=== PATIENT | female | born 1940 | race Caucasian/White ===

== ENCOUNTER 2018-02-08 19:00 | Observation (INO) ==
[2018-02-08] MEDS ORDERED: 0.9 % Sodium Chloride 1,000 ML IVC ONE (19:09)
--- NOTE | 2018-02-08 19:10 | Emergency Department Note ---
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 Reports eating today and drinking fluids throughout the day. Denies any fall, dizziness, or LOC today. Patient states she has had 2 episodes of feeling very lightheaded 1 month ago, which resulted in her "passing out" and falling to the ground. States the second time she fell last month, she hit the back of her head on the ground when she "passed out". Patient states that time she was able to stand up and has not had any difficulty ambulating since. She states she did not seek medical evaluation and treatment after these incidents. Patient denies fever, chills, congestion, and she reports having a nonproductive cough for the past one week. Patient denies numbness, paresthesias in the extremities, denies tremors, or feeling unbalanced. Denies chest pain, dyspnea, or palpitations. Denies abdominal pain, hematochezia, melena, polyuria, hematuria, dysuria; Patient states she has not had an NH in the past, and denies history of CVA or TIA. Last stress test was in 2014 which was negative. Last colonoscopy was in 2008 which was also negative. - Related Data Home Medications Medication Instructions Recorded Confirmed Alendronate Sodium [Fosamax] 35 mg PO QWEEK 02/08/18 02/08/18 Atenolol [Tenormin] 50 mg PO DAILY 02/08/18 02/08/18 Atorvastatin Calcium [Lipitor] 20 mg PO HS 02/08/18 02/08/18 Calcium Carb, Citrate/Vit D3 1 tab PO DAILY 02/08/18 02/08/18 [Calcium + D3 ER Tablet] Lisinopril [Zestril] 10 mg PO DAILY 02/08/18 02/08/18 Loratadine [Allergy Relief] 10 mg PO DAILY 02/08/18 02/08/18 Multivitamin [One Daily Essential] 1 tab PO DAILY 02/08/18 02/08/18 Niacin [Plain Niacin] 250 mg PO DAILY 02/08/18 02/08/18 [place]-3/Dha/Epa/Fish Oil [Fish Oil 1 cap PO DAILY 02/08/18 02/08/18 1,000 mg Softgel] amLODIPine [Norvasc] 5 mg PO DAILY 02/08/18 02/08/18 hydroCHLOROthiazide 25 mg PO DAILY 02/08/18 02/08/18 [Hydrochlorothiazide] Allergies Allergy/AdvReac Type Severity Reaction Status Date / Time caffeine Allergy Hives Verified 02/08/18 19:28 codeine Allergy Hives Verified 02/08/18 19:28 digoxin [From Lanoxin] Allergy Hives Verified 02/08/18 19:28 All systems ED: reviewed and negative except as stated. Review of Systems: As Per HPI Constitutional: Denies: fever Cardiovascular: Reports: other (Presyncope). Denies: chest pain Respiratory: Denies: cough, dyspnea Gastrointestinal: Denies: abdominal pain, nausea, vomiting Genitourinary: Denies: urgency, dysuria, frequency Neurological: Denies: headache Physical Exam - General General appearance: alert, in no apparent distress - Head Head exam: normocephalic - Eye Eye exam: Present: EOMI - ENT ENT exam: normal oropharynx - Neck Neck exam: Present: trachea midline - Chest Chest inspection: Present: symmetric chest wall rise - Respiratory Respiratory exam: Present: normal lung sounds bilaterally. Absent: respiratory distress - Cardiovascular Cardiovascular exam: Present: regular rate, normal rhythm, normal heart sounds - Abdominal Exam Abdominal exam: Present: soft, Non-Tender. Absent: distention, guarding, rebound, rigidity - Extremities Exam Extremities exam: Present: normal capillary refill - Back Exam Back exam: Present: full ROM - Neurological Exam Neurological exam: Present: alert, oriented X3, CN II-XII intact, other (GCS 15 , NIH of 0) - Psychiatric Psychiatric exam: Present: normal affect, normal mood - Skin Skin exam: Present: warm, dry, intact Course Vital Signs Temperature 98.1 F 02/08/18 19:02 Pulse Rate 80 02/08/18 19:02 Respiratory Rate 20 02/08/18 19:02 Blood Pressure 169/71 02/08/18 19:02 O2 Sat by Pulse Oximetry 97 02/08/18 19:02 Temperature 98.1 F 02/08/18 19:02 Pulse Rate 75 02/08/18 22:35 Respiratory Rate 20 02/08/18 22:35 Blood Pressure 166/77 02/08/18 22:35 O2 Sat by Pulse Oximetry 95 02/08/18 22:35 Oxygen Delivery Oxygen Delivery Room Air Medical Decision Making - [facility] Narrative Medical decision making narrative: 78-year-old female presented to the emergency department with concern for presyncopal episode and generalized weakness. 10 EKG. It did not reveal any ischemic ST changes. Also did not reveal any evidence of QT prolongation, we will Suh White syndrome, Brugada syndrome, arrhythmia genic right ventricular cardiomyopathy, or any other arrhythmia. Patient was given a liter of fluids here in the emergency department with concern for possible dehydration. Troponin was negative. Chest x-ray did not reveal any acute car to pulmonary abnormality. Creatinine was normal. Patient had a normal white blood cell count as well as a normal hemoglobin. We did obtain a head CT as patient had a recent fall where she struck the back of her head. CT scan of the head does not show any intracranial hemorrhage. At this time, patient does not have full cardiac evaluation or full workup for having these pre-syncopal events. I spoke with the hospitalist regarding admission of this patient has do not feel is safe for her to go home after an event today. He agreed to accept the patient for admission. Patient agrees as well as she has been seeing primary care provider for this and has not had full evaluation in an inpatient setting. Patient hemodynamically stable not in acute distress at time of admission. Head CT 02/08/18 19:34 IMPRESSION: No acute intracranial hemorrhage or mass effect. D/ / Jose Parks MD / Jose Parks MD Interpreting Provider: Jose Parks MD Chest X-Ray 02/08/18 22:25 IMPRESSION: No acute cardiopulmonary abnormality. D/ / Aly Baird / Aly Baird Interpreting Provider: Aly Baird Vital Signs Temperature 98.1 F 02/08/18 19:02 Pulse Rate 80 02/08/18 19:02 Respiratory Rate 20 02/08/18 19:02 Blood Pressure 169/71 02/08/18 19:02 O2 Sat by Pulse Oximetry 97 02/08/18 19:02 Temperature 98.1 F 02/08/18 19:02 Pulse Rate 75 02/08/18 22:35 Respiratory Rate 20 02/08/18 22:35 Blood Pressure 166/77 02/08/18 22:35 O2 Sat by Pulse Oximetry 95 02/08/18 22:35 Oxygen Delivery Oxygen Delivery Room Air - Lab Data Result diagrams: 02/08/18 19:09 02/08/18 19:09 Lab Results 02/08/18 02/08/18 02/08/18 Range/Units 19:09 19:09 19:09 WBC 7.3 (4.3-11.1) K/mcL RBC 4.45 (3.82-4.97) M/mcL Hgb 13.7 (11.5-15.4) g/dL Hct 39.0 (35.3-44.9) % MCV 87.6 (83.0-100.0) fL MCH 30.8 (28.0-33.3) pg MCHC 35.1 (31.6-35.5) g/dL RDW 12.7 (11.5-14.5) % Plt Count 225 (140-400) K/mcL MPV 10.3 (9.4-12.4) fL Immature Gran % 0.4 (0-4) % Seg Neutrophils % 50.3 % Lymphocytes % 32.1 % Monocytes % 13.4 % Eosinophils % 3.3 % Basophils % 0.5 % Neutrophils # 3.7 (1.6-8.9) K/mcL Lymphocytes # 2.4 (0.6-4.6) K/mcL Monocytes # 1.0 (0.0-1.3) K/mcL Eosinophils # 0.2 (0.0-0.6) K/mcL Basophils # 0.0 (0.0-0.2) K/mcL Sodium 132 L (136-145) mEq/L Potassium 3.8 (3.5-5.1) mEq/L Chloride 95 L (98-107) mEq/L Carbon Dioxide 29 (23-29) mEq/L BUN 23 (8-23) mg/dL Creatinine 1.16 (0.60-1.20) mg/dL Est GFR ( Amer) 55 L (> 60) Est GFR (Non-Af Amer) 45 L (> 60) BUN/Creatinine Ratio 20 (6-26) Glucose 128 H (70-105) mg/dL Calculated Osmolality 279 L (280-300) Calcium 10.6 H (8.6-10.3) mg/dL Troponin I < 0.03 (< 0.04) ng/mL B-Natriuretic Peptide 84 (Less than 100) pg/mL TSH 2.217 (0.340-5.600) mcIU/mL Urine Color (Yellow) Urine Clarity (Clear) Urine pH (5.0-8.0) pH Units Ur Specific [place] (1.010-1.025) Urine Protein (Neg-Trace) mg/dL Urine Glucose (UA) (Normal) mg/dL Urine Ketones (Negative) mg/dL Urine Blood (Negative) Urine Nitrite (Negative) Urine Bilirubin (Negative) Urine Urobilinogen (Normal) mg/dL Ur Leukocyte Esterase (Negative) Urine Microscopic RBC (0-3) per hpf Urine Microscopic WBC (0-3) per hpf Ur Squamous Epith Cells (None-Few) per lpf Urine Bacteria (None-Few) per hpf Hyaline Casts (None-Few) per lpf Ur Culture Indicated? (NO) 02/08/18 Range/Units 22:23 WBC (4.3-11.1) K/mcL RBC (3.82-4.97) M/mcL Hgb (11.5-15.4) g/dL Hct (35.3-44.9) % MCV (83.0-100.0) fL MCH (28.0-33.3) pg MCHC (31.6-35.5) g/dL RDW (11.5-14.5) % Plt Count (140-400) K/mcL MPV (9.4-12.4) fL Immature Gran % (0-4) % Seg Neutrophils % % Lymphocytes % % Monocytes % % Eosinophils % % Basophils % % Neutrophils # (1.6-8.9) K/mcL Lymphocytes # (0.6-4.6) K/mcL Monocytes # (0.0-1.3) K/mcL Eosinophils # (0.0-0.6) K/mcL Basophils # (0.0-0.2) K/mcL Sodium (136-145) mEq/L Potassium (3.5-5.1) mEq/L Chloride (98-107) mEq/L Carbon Dioxide (23-29) mEq/L BUN (8-23) mg/dL Creatinine (0.60-1.20) mg/dL Est GFR ( Amer) (> 60) Est GFR (Non-Af Amer) (> 60) BUN/Creatinine Ratio (6-26) Glucose (70-105) mg/dL Calculated Osmolality (280-300) Calcium (8.6-10.3) mg/dL Troponin I (< 0.04) ng/mL B-Natriuretic Peptide (Less than 100) pg/mL TSH (0.340-5.600) mcIU/mL Urine Color Yellow (Yellow) Urine Clarity Clear (Clear) Urine pH 7.0 (5.0-8.0) pH Units Ur Specific [place] 1.007 L (1.010-1.025) Urine Protein Negative (Neg-Trace) mg/dL Urine Glucose (UA) Normal (Normal) mg/dL Urine Ketones Negative (Negative) mg/dL Urine Blood Trace H (Negative) Urine Nitrite Negative (Negative) Urine Bilirubin Negative (Negative) Urine Urobilinogen Normal (Normal) mg/dL Ur Leukocyte Esterase Trace H (Negative) Urine Microscopic RBC 0-3 (0-3) per hpf Urine Microscopic WBC 0-3 (0-3) per hpf Ur Squamous Epith Cells None Seen (None-Few) per lpf Urine Bacteria None Seen (None-Few) per hpf Hyaline Casts None Seen (None-Few) per lpf Ur Culture Indicated? YES A (NO) - EKG Data EKG #1 EKG attestation: Yes I reviewed and interpreted this EKG. EKG results narrative: 19:20 Ventricular rate 79 bpm, CO 173 ms, QRS duration 82 ms, QT 375 ms, QTC 409 ms, normal axis. Sinus rhythm with a ventricular rate 79 beats for minute. No ischemic ST changes on this EKG. No evidence of Hexrn-Frwttnmvi-[place] syndrome, Brugada syndrome, hypertrophic myopathy, QT prolongation, arrhythmogenic right ventricular cardiomyopathy.
[2018-02-08 19:37] LABS: Basophils % 0.5 %; Eosinophils # 0.2 K/mcL (0.0-0.6); Eosinophils % 3.3 %; Hemoglobin 13.7 g/dL (11.5-15.4); Immature Granulocytes % 0.4 % (0-4); Lymphocytes # 2.4 K/mcL (0.6-4.6); Lymphocytes % 32.1 %; Mean Corpuscular HGB Conc 35.1 g/dL (31.6-35.5); Mean Corpuscular Hemoglobin 30.8 pg (28.0-33.3); Mean Corpuscular Volume 87.6 fL (83.0-100.0); Mean Platelet Volume 10.3 fL (9.4-12.4); Monocytes % 13.4 %; Neutrophils # 3.7 K/mcL (1.6-8.9); Platelet Count 225 K/mcL (140-400); Red Blood Count 4.45 M/mcL (3.82-4.97); Red Cell Distribution Width 12.7 % (11.5-14.5); Segmented Neutrophils % 50.3 %
[2018-02-08 20:00] LABS: BUN/Creatinine Ratio 20 (6-26); Blood Urea Nitrogen 23 mg/dL (8-23); Calcium 10.6 mg/dL (8.6-10.3); Carbon Dioxide 29 mEq/L (23-29); Chloride 95 mEq/L (98-107); Glucose 128 mg/dL (70-105); Osmolality,Calculated 279 (280-300); Potassium 3.8 mEq/L (3.5-5.1); Sodium 132 mEq/L (136-145); eGFR For Non-African Americans 45 (> 60)
[2018-02-08 20:01] LABS: Troponin I < 0.03 ng/mL (< 0.04)
[2018-02-08 20:22] LABS: Thyroid Stimulating Hormone 2.217 mcIU/mL (0.340-5.600)
[2018-02-08 22:32] LABS: Bilirubin,Urine Negative (Negative); Blood,Urine Trace (Negative); Clarity,Urine Clear (Clear); Color,Urine Yellow (Yellow); Glucose,Urine (UA) Normal (Normal); Ketones,Urine Negative (Negative); Leukocyte Esterase,Urine Trace (Negative); Nitrite,Urine Negative (Negative); Protein,Urine Negative (Neg-Trace); Specific Gravity,Urine 1.007 (1.010-1.025); Urobilinogen,Urine Normal (Normal)
--- NOTE | 2018-02-08 22:32 | Emergency Department Note ---
Disposition Clinical Impression: Pre-syncope Disposition: Admitted As Inpatient Condition: Good Weakness HPI - General Chief complaint: ED Weakness Stated complaint: generalized weakness Time Seen by Provider: 02/08/18 19:04 Source: patient, EMS Mode of arrival: ambulatory Limitations: no limitations Nursing Notes Reviewed: Yes Vital Signs Reviewed: Yes - History of Present Illness Pain Scale: 0 - Related Data Home Medications Medication Instructions Recorded Confirmed Alendronate Sodium [Fosamax] 35 mg PO QWEEK 02/08/18 02/08/18 Atenolol [Tenormin] 50 mg PO DAILY 02/08/18 02/08/18 Atorvastatin Calcium [Lipitor] 20 mg PO HS 02/08/18 02/08/18 Calcium Carb, Citrate/Vit D3 1 tab PO DAILY 02/08/18 02/08/18 [Calcium + D3 ER Tablet] Lisinopril [Zestril] 10 mg PO DAILY 02/08/18 02/08/18 Loratadine [Allergy Relief] 10 mg PO DAILY 02/08/18 02/08/18 Multivitamin [One Daily Essential] 1 tab PO DAILY 02/08/18 02/08/18 Niacin [Plain Niacin] 250 mg PO DAILY 02/08/18 02/08/18 [place]-3/Dha/Epa/Fish Oil [Fish Oil 1 cap PO DAILY 02/08/18 02/08/18 1,000 mg Softgel] amLODIPine [Norvasc] 5 mg PO DAILY 02/08/18 02/08/18 Allergies Allergy/AdvReac Type Severity Reaction Status Date / Time caffeine Allergy Hives Verified 02/08/18 19:28 codeine Allergy Hives Verified 02/08/18 19:28 digoxin [From Lanoxin] Allergy Hives Verified 02/08/18 19:28 Past Medical History - Past Medical History Medical history: Reports: atrial fibrillation, GERD, hypertension Psychiatric history: Reports: no psych history - Social History Smoking Status: Never smoker Smokeless Tobacco Status: No Alcohol use: Reports: none Drug use: Reports: none Physical Exam - General Limitations: no limitations General appearance: alert Course Vital Signs Temperature 98.1 F 02/08/18 19:02 Pulse Rate 80 02/08/18 19:02 Respiratory Rate 20 02/08/18 19:02 Blood Pressure 169/71 02/08/18 19:02 O2 Sat by Pulse Oximetry 97 02/08/18 19:02 Temperature 97.7 F 02/10/18 06:55 Pulse Rate 61 02/10/18 06:55 Respiratory Rate 15 02/10/18 06:55 Blood Pressure 124/67 02/10/18 06:55 O2 Sat by Pulse Oximetry 93 02/10/18 06:55 Oxygen Delivery Oxygen Delivery Room Air Weakness - Lab Data Result diagrams: 02/09/18 02:42 02/09/18 02:42 Lab Results 02/08/18 02/08/18 02/08/18 Range/Units 19:09 19:09 19:09 WBC 7.3 (4.3-11.1) K/mcL RBC 4.45 (3.82-4.97) M/mcL Hgb 13.7 (11.5-15.4) g/dL Hct 39.0 (35.3-44.9) % MCV 87.6 (83.0-100.0) fL MCH 30.8 (28.0-33.3) pg MCHC 35.1 (31.6-35.5) g/dL RDW 12.7 (11.5-14.5) % Plt Count 225 (140-400) K/mcL MPV 10.3 (9.4-12.4) fL Immature Gran % 0.4 (0-4) % Seg Neutrophils % 50.3 % Lymphocytes % 32.1 % Monocytes % 13.4 % Eosinophils % 3.3 % Basophils % 0.5 % Neutrophils # 3.7 (1.6-8.9) K/mcL Lymphocytes # 2.4 (0.6-4.6) K/mcL Monocytes # 1.0 (0.0-1.3) K/mcL Eosinophils # 0.2 (0.0-0.6) K/mcL Basophils # 0.0 (0.0-0.2) K/mcL Sodium 132 L (136-145) mEq/L Potassium 3.8 (3.5-5.1) mEq/L Chloride 95 L (98-107) mEq/L Carbon Dioxide 29 (23-29) mEq/L BUN 23 (8-23) mg/dL Creatinine 1.16 (0.60-1.20) mg/dL Est GFR ( Amer) 55 L (> 60) Est GFR (Non-Af Amer) 45 L (> 60) BUN/Creatinine Ratio 20 (6-26) Glucose 128 H (70-105) mg/dL Calculated Osmolality 279 L (280-300) Calcium 10.6 H (8.6-10.3) mg/dL Troponin I < 0.03 (< 0.04) ng/mL B-Natriuretic Peptide 84 (Less than 100) pg/mL TSH 2.217 (0.340-5.600) mcIU/mL Urine Color (Yellow) Urine Clarity (Clear) Urine pH (5.0-8.0) pH Units Ur Specific [place] (1.010-1.025) Urine Protein (Neg-Trace) mg/dL Urine Glucose (UA) (Normal) mg/dL Urine Ketones (Negative) mg/dL Urine Blood (Negative) Urine Nitrite (Negative) Urine Bilirubin (Negative) Urine Urobilinogen (Normal) mg/dL Ur Leukocyte Esterase (Negative) Urine Microscopic RBC (0-3) per hpf Urine Microscopic WBC (0-3) per hpf Ur Squamous Epith Cells (None-Few) per lpf Urine Bacteria (None-Few) per hpf Hyaline Casts (None-Few) per lpf Ur Culture Indicated? (NO) 02/08/18 Range/Units 22:23 WBC (4.3-11.1) K/mcL RBC (3.82-4.97) M/mcL Hgb (11.5-15.4) g/dL Hct (35.3-44.9) % MCV (83.0-100.0) fL MCH (28.0-33.3) pg MCHC (31.6-35.5) g/dL RDW (11.5-14.5) % Plt Count (140-400) K/mcL MPV (9.4-12.4) fL Immature Gran % (0-4) % Seg Neutrophils % % Lymphocytes % % Monocytes % % Eosinophils % % Basophils % % Neutrophils # (1.6-8.9) K/mcL Lymphocytes # (0.6-4.6) K/mcL Monocytes # (0.0-1.3) K/mcL Eosinophils # (0.0-0.6) K/mcL Basophils # (0.0-0.2) K/mcL Sodium (136-145) mEq/L Potassium (3.5-5.1) mEq/L Chloride (98-107) mEq/L Carbon Dioxide (23-29) mEq/L BUN (8-23) mg/dL Creatinine (0.60-1.20) mg/dL Est GFR ( Amer) (> 60) Est GFR (Non-Af Amer) (> 60) BUN/Creatinine Ratio (6-26) Glucose (70-105) mg/dL Calculated Osmolality (280-300) Calcium (8.6-10.3) mg/dL Troponin I (< 0.04) ng/mL B-Natriuretic Peptide (Less than 100) pg/mL TSH (0.340-5.600) mcIU/mL Urine Color Yellow (Yellow) Urine Clarity Clear (Clear) Urine pH 7.0 (5.0-8.0) pH Units Ur Specific [place] 1.007 L (1.010-1.025) Urine Protein Negative (Neg-Trace) mg/dL Urine Glucose (UA) Normal (Normal) mg/dL Urine Ketones Negative (Negative) mg/dL Urine Blood Trace H (Negative) Urine Nitrite Negative (Negative) Urine Bilirubin Negative (Negative) Urine Urobilinogen Normal (Normal) mg/dL Ur Leukocyte Esterase Trace H (Negative) Urine Microscopic RBC 0-3 (0-3) per hpf Urine Microscopic WBC 0-3 (0-3) per hpf Ur Squamous Epith Cells None Seen (None-Few) per lpf Urine Bacteria None Seen (None-Few) per hpf Hyaline Casts None Seen (None-Few) per lpf Ur Culture Indicated? YES A (NO) Attestation Statement - Attestation Attestation: I, Yasmany rOellana, examined this patient and my medical decision-making was reviewed with the DATA OPERATIONS LEADER/PA/Advanced Practice Nurse/Resident Physician. I agree with the documented findings, disposition and treatment plan as described except to the extent set forth below. 78-year-old female presents emergency Department with concerns of near syncope. Patient states she was sitting [place] a show [place] the [place] when she suddenly became lightheaded and felt like she was going to syncopized. Patient has had similar symptoms intermittently over the past few months and last syncopized one month ago. She did not seek medical attention after that time. Patient states she felt like she was going to syncopized today. She denied chest pain or shortness of breath or nausea, vomiting, diarrhea. No fever. Patient states she drank plenty of water throughout the day today. Initial EKG did not show evidence of acute ischemia or STEMI. Laboratory evaluation is largely within normal limits. No focal neurologic deficits on exam. CT did not show evidence of acute pathology. Patient will be admitted for further care and evaluation of near syncope
[2018-02-08 22:35] LABS: Bacteria,Urine None Seen per hpf (None-Few); Hyaline Casts,Urine None Seen per lpf (None-Few); RBC,Urine 0-3 per hpf (0-3); Squamous Epithelial Cell,Urine None Seen per lpf (None-Few); WBC,Urine 0-3 per hpf (0-3)
[2018-02-09] MEDS ORDERED: Naloxone 0.4 MG/ML INJ IVP PRN (02:28)
[2018-02-09 03:19] LABS: Hemoglobin 13.1 g/dL (11.5-15.4); Mean Corpuscular HGB Conc 35.4 g/dL (31.6-35.5); Mean Corpuscular Hemoglobin 30.9 pg (28.0-33.3); Mean Corpuscular Volume 87.3 fL (83.0-100.0); Mean Platelet Volume 10.5 fL (9.4-12.4); Platelet Count 217 K/mcL (140-400); Red Blood Count 4.24 M/mcL (3.82-4.97); Red Cell Distribution Width 12.6 % (11.5-14.5)
[2018-02-09 03:38] LABS: BUN/Creatinine Ratio 25 (6-26); Blood Urea Nitrogen 23 mg/dL (8-23); Calcium 9.6 mg/dL (8.6-10.3); Carbon Dioxide 24 mEq/L (23-29); Chloride 103 mEq/L (98-107); Glucose 111 mg/dL (70-105); Osmolality,Calculated 286 (280-300); Potassium 3.4 mEq/L (3.5-5.1); Sodium 136 mEq/L (136-145); eGFR For Non-African Americans 60 (> 60)
--- NOTE | 2018-02-09 07:59 | Internal Med History&Physical ---
Date of Encounter: 02/09/18 Time of Encounter: 01:20 Internal Medicine - H&P: HPI Chief complaint: weakness Admitted From: Home History of present illness: Ms. Tenorio is a 78 year old female Patient had [place] today states that she was not feeling well. She is sitting up on the bleachers and started to feel "weird"and that she might fall so she came down from the bleachers and sat in a chair. The feeling increased, a physician family friend [place], and recommended that she go to the ER for evaluation. This feeling of weakness has been worse, possibly related to the excess heat at the fair. She indicates that she has had evaluations for this in the past but everything always comes back normal. She denies recent falls, has seen cardiology 2-3 years ago with normal workup. She has noted some sinus pressure lately but currently that is better. Upon my assessment patient denies chest pain, nausea, vomiting, abdominal pain, diarrhea, constipation, neck pain and vision changes. She has no current complaints, resting comfortably in bed. Past Med Surg Social Fam HX - Past Medical History Medical history: atrial fibrillation, GERD, hyperlipidemia, hypertension Additional medical history: high triglycerides Psychiatric history: no psych history - Social History Smoking Status: Never smoker Smokeless Tobacco Status: No Alcohol use: none Drug use: none - Family History Mother History Unknown: Yes Name: Briana Walters Age at : 97 Hx Family Genitourinary Disorders: Yes Internal Medicine - H&P: Meds Alendronate Sodium [Fosamax] 35 mg PO QWEEK 02/08/18 [History] Atenolol [Tenormin] 50 mg PO DAILY 02/08/18 [History] Atorvastatin Calcium [Lipitor] 20 mg PO HS 02/08/18 [History] Calcium Carb, Citrate/Vit D3 [Calcium + D3 ER Tablet] 1 tab PO DAILY 02/08/18 [ History] Lisinopril [Zestril] 10 mg PO DAILY 02/08/18 [History] Loratadine [Allergy Relief] 10 mg PO DAILY 02/08/18 [History] Multivitamin [One Daily Essential] 1 tab PO DAILY 02/08/18 [History] Niacin [Plain Niacin] 250 mg PO DAILY 02/08/18 [History] [place]-3/Dha/Epa/Fish Oil [Fish Oil 1,000 mg Softgel] 1 cap PO DAILY 02/08/18 [ History] amLODIPine [Norvasc] 5 mg PO DAILY 02/08/18 [History] hydroCHLOROthiazide [Hydrochlorothiazide] 25 mg PO DAILY 02/08/18 [History] 3 Allergy/AdvReac Type Severity Reaction Status Date / Time caffeine Allergy Hives Verified 02/08/18 19:28 codeine Allergy Hives Verified 02/08/18 19:28 digoxin [From Lanoxin] Allergy Hives Verified 02/08/18 19:28 All Systems PM: A 10-system review of systems was performed and is negative for pertinent findings except as documented above in the HPI. - Constitutional Vitals: Temp Pulse Resp BP Pulse Ox 97.6 F 68 15 139/71 94 02/09/18 06:29 02/09/18 06:29 02/09/18 06:29 02/09/18 06:29 02/09/18 06:29 General appearance: Present: cooperative, A&O X 3, pleasant, no acute distress, answers questions appropriately - Head Head exam: Present: normal inspection - Eye Eye exam: Present: EOMI, normal appearance - Neck Neck exam general surgery: Present: full ROM. Absent: tenderness - Respiratory Respiratory exam: Present: CTAB. Absent: chest wall tenderness, decreased breath sounds, respiratory distress, wheezes - Cardiovascular Cardiovascular exam: Present: RRR. Absent: diastolic murmur, systolic murmur - GI/Abdominal GI/Abdominal exam: Present: normal bowel sounds, soft. Absent: tenderness - Extremities Exam Extremities exam: Present: full ROM, warm, radial pulses palpable and symmetrical. Absent: calf tenderness, pedal edema, tenderness - Neurological Exam Neurological exam: Present: no focal deficits, strengths equal and symetr throughout. Absent: motor sensory deficit, facial droop, speech deficit - Skin Skin exam: Present: dry, normal color, warm Internal Med - H&P Results - Labs CBC & Chem 7: 02/09/18 02:42 02/09/18 02:42 Labs: Short CBC 02/09/18 Range/Units 02:42 WBC 8.8 (4.3-11.1) K/mcL Hgb 13.1 (11.5-15.4) g/dL Hct 37.0 (35.3-44.9) % Plt Count 217 (140-400) K/mcL [facility] 02/09/18 02:42 Sodium 136 Potassium 3.4 L Chloride 103 Carbon Dioxide 24 BUN 23 Creatinine 0.91 Glucose 111 H Calcium 9.6 - Assessment and plan (1) Pre-syncope Current Visit: Yes Status: Acute Assessment and plan: [place] the [place], has a history of these sort of symptoms including weakness and near syncope. No recent cardiology work up. Head CT negative. Orthostatic vitals in the morning Consider cardiology consult for outpatient monitor placement IV fluids given, continue to monitor. Fall precautions. (2) Hypertension Current Visit: Yes Status: Acute Assessment and plan: Patient's blood pressure initially elevated, improved on recheck. Patient takes 4 different blood pressure medications. Possibly needs readjustments, as this combination could be causing her symtoms. Review blood pressure medications at discharge. Continue to monitor. Qualifiers: Qualified Code(s): I10 - Essential (primary) hypertension (3) DVT prophylaxis Current Visit: Yes Status: Acute Assessment and plan: SCDs - Time Spent With Patient Total time spent is greater than 50% in coordination of care (as documented) at patient's floor/unit and/or counseling patient: Greater than 35 minutes
--- NOTE | 2018-02-09 10:29 | Cardiology Consult Note ---
Date of Encounter: 02/09/18 Time of Encounter: 10:27 Assessment and Plan (1) Pre-syncope Current Visit: Yes Status: Acute 78-year-old female who reports a few episodes of near syncope in the setting of periods of decreased hydration, prolonged standing, and hot environments. Presentation is suggestive of orthostatic hypotension. We discussed the importance of risk factor modification, including aggressive hydration, especially in hot environments. She was encouraged to avoid prolonged periods of standing. Compression stockings encouraged. Telemetry demonstrates sinus rhythm, ECG to same. Recommend TTE. If no significant findings on TTE, then no further inpatient cardiac testing appears to be necessary at this time. Discussion w patient/family: The assessment and plan as outlined above was discussed with the patient and/or family members who expressed understanding and agreement. All questions were answered. Thank you for involving us in the care of your patient. Please call with any questions. History of Present Illness Consult date: 02/09/18 Requesting physician: Addison Pena Consult reason: Near syncope Chief complaint: Near syncope History of present illness: Ms. Tenorio is a 78 year old female with no known cardiac history presents with near-syncopal episode. Patient states she underwent cardiac testing in 2016 at [facility] - states stress test was negative, heart function normal. Describes several near-syncopal episodes over the past few months. States symptoms have always occurred after periods of decreased hydration. States last [place], very hot. Describes feeling lightheaded and near syncopal during that time. She [place] the [place] yesterday. States she had a long day, on her feet quite a bit. Describes a progressive sensation of lightheadedness, resulting in near syncope. Patient and family know Dr. Romero, who recommended she come to the ER for evaluation. Denies associated chest pain. Relatively active at home, no exertional symptoms reported. Telemetry demonstrates sinus rhythm. Of note, urine culture is pending. Sodium 132, now 136. Troponin negative. CBC normal. CT head unremarkable. Past Med Surg Social Fam HX - Past Medical History Medical history: atrial fibrillation, GERD, hyperlipidemia, hypertension Additional medical history: high triglycerides Psychiatric history: no psych history - Social History Smoking Status: Never smoker Smokeless Tobacco Status: No Alcohol use: none Drug use: none - Family History Mother History Unknown: Yes Name: Briana Walters Age at : 97 Hx Family Genitourinary Disorders: Yes Medications and Allergies Alendronate Sodium [Fosamax] 35 mg PO QWEEK 02/08/18 [History] Atenolol [Tenormin] 50 mg PO DAILY 02/08/18 [History] Atorvastatin Calcium [Lipitor] 20 mg PO HS 02/08/18 [History] Calcium Carb, Citrate/Vit D3 [Calcium + D3 ER Tablet] 1 tab PO DAILY 02/08/18 [ History] Lisinopril [Zestril] 10 mg PO DAILY 02/08/18 [History] Loratadine [Allergy Relief] 10 mg PO DAILY 02/08/18 [History] Multivitamin [One Daily Essential] 1 tab PO DAILY 02/08/18 [History] Niacin [Plain Niacin] 250 mg PO DAILY 02/08/18 [History] [place]-3/Dha/Epa/Fish Oil [Fish Oil 1,000 mg Softgel] 1 cap PO DAILY 02/08/18 [ History] amLODIPine [Norvasc] 5 mg PO DAILY 02/08/18 [History] hydroCHLOROthiazide [Hydrochlorothiazide] 25 mg PO DAILY 02/08/18 [History] 3 Allergy/AdvReac Type Severity Reaction Status Date / Time caffeine Allergy Hives Verified 02/08/18 19:28 codeine Allergy Hives Verified 02/08/18 19:28 digoxin [From Lanoxin] Allergy Hives Verified 02/08/18 19:28 All Systems Review: The remainder of the systems were reviewed and are negative - Cardiovascular Cardiovascular: as per HPI Physical Examination Vital Signs, Last 4 Hours Temp Pulse Resp BP Pulse Ox 02/09/18 06:29 97.6 F 68 15 139/71 94 General: Conversant, No Apparent Distress HEENT: Atraumatic, Normocephaly, Mucus Membranes Moist Neck: No JVD, Normal carotid pulses Cardiac: Reg Rate and Rhythm, Normal S1 and S2, No Murmur Lungs: Normal Breath Sounds, No Wheeze, Rales, Rhonchi Neuro: Alert and responsive, No focal deficits noted Abdomen: Soft, Non-Tender Skin: No rashes noted on visualized skin Musculoskeletal: No Chest Wall Tenderness Extremities: No Clubbing, No Cyanosis, No Edema Results 02/09/18 02:42 02/09/18 02:42 Lab Results 02/09/18 02/09/18 02:42 02:42 WBC 8.8 Hgb 13.1 Hct 37.0 Plt Count 217 Sodium 136 Potassium 3.4 L Chloride 103 Carbon Dioxide 24 BUN 23 Creatinine 0.91 Glucose 111 H Calcium 9.6 - EKG Interpretation EKG results cardiology: personally reviewed Consult Discharge Plan - Plan Referrals: Master Lynch MD [Primary Care Provider] -
[2018-02-09] MEDS: Loratadine 10 MG TABLET PO SCH (16:09)
[2018-02-09] MEDS: amLODIPine 5 MG TABLET PO SCH (16:09)
--- NOTE | 2018-02-09 17:56 | Internal Med Progress Note ---
<DentonLeighann Reymundo - Last Filed: 02/09/18 18:15> Hospitalist Progress Note - Encounter Date of Encounter: 02/09/18 Time of Encounter: 10:30 - Subjective Interval History: Miss Tenorio states that she is feeling today. She does admit to a headache that is mild, constant, dull frontal pain that worsens when she lies flat. She states that it is similar to the headaches she has gotten in the past, she states that it is usually caused by sinus pressure related to allergies. She states that she only becomes dizzy when standing and it is worse in the morning after taking her blood pressure medications, she states that the dizziness is the least at night. She denies any dizziness or lightheadedness at this time. She denies any vision changes, nausea, vomiting, fever, chills, chest pain, shortness of breath, abdominal pain, parathesias, or weakness at this time. - Exam Vitals: Temp Pulse Resp BP Pulse Ox 97.6 F 70 15 151/74 94 02/09/18 15:45 02/09/18 15:45 02/09/18 15:45 02/09/18 15:45 02/09/18 15:45 Exam: General: Resting comfortably, in no acute distress, AAOx3, pleasant HEENT: Normocephalic, atraumatic, EOMI, PERRL, mucus membranes moist. Neck soft , supple, trachea midline, no cervical lymphadenopathy. Cardio: RRR, no murmurs, rubs or gallops. Normal S1, S2. No carotid bruits. Pulmonary: No wheezes, rales or rhonchi. No accessory respiratory muscle use. Abdomen: Soft, non tender, non distended, normal bowel sounds, no guarding, rebound or rigidity. No CVA or suprapubic tenderness. Extremities: Radial and dorsal pedis pulses 2+ and symmetrical, normal capillary refill, no clubbing. No peripheral edema or calf tenderness. Neuro: CN 2-12 intact, no focal deficits, motor and sensation both intact. Decreased ROM of turning her neck to the left side or looking down. Psych: Normal mood and affect, answers questions appropriately - Assessment and Plan (1) Orthostatic hypotension Current Visit: Yes Status: Acute Assessment and Plan: History of increasing frequency of pre-syncopal episodes Often occurs after blood pressure medications in morning, during prolonged standing, decreased hydration Most likely secondary to suspected orthostatic hypotension vs antihypertensive medications Head CT negative Telemetry showed normal sinus rhythm EKG showed no evidence of arrhythmia or ischemic ST changes Orthostatic vitals normal, were tested after admission and IV fluids given ECHO showed LVEF 65%, mild left ventricular diastolic dysfunction, mild aortic regurgitation, mild pulmonary hypertension. Cardio recs: aggressive hydration, compression stockings. Discontinued hydrochlorothiazide Neuro consult pending (2) Hypertension Current Visit: Yes Status: Acute Assessment and Plan: Uncontrolled, currently at 151/74 hydrochlorothiazide discontinued as presyncopal episodes most likely secondary to dehydration and orthostatic hypotension Continue amlodipine, atenolol and lisinopril Will continue to adjust medications for better blood pressure control and prevent future presyncopal events continue to monitor (3) Hypokalemia Current Visit: Yes Status: Acute Assessment and Plan: was at 3.4 today replaced with 40 mg potassium chloride DVT Prophylaxis: SCD's - Time Spent with Patient Total time spent is greater than 50% in coordination of care (as documented) at patient's floor/unit and/or counseling patient: Internal Medicine: Result - Labs CBC & Chem 7: 02/09/18 02:42 02/09/18 02:42 Labs: Short CBC 02/09/18 Range/Units 02:42 WBC 8.8 (4.3-11.1) K/mcL Hgb 13.1 (11.5-15.4) g/dL Hct 37.0 (35.3-44.9) % Plt Count 217 (140-400) K/mcL BMP 02/09/18 02:42 Sodium 136 Potassium 3.4 L Chloride 103 Carbon Dioxide 24 BUN 23 Creatinine 0.91 Glucose 111 H Calcium 9.6 - Impressions Impressions Echocardiogram 02/09/18 10:36 Impressions: LVEF 65%. Normal LV chamber size, wall thickness and function. Mild left ventricular diastolic dysfunction. Normal right ventricular structure and function. Mild aortic regurgitation. Mild pulmonary hypertension. Estimated RVSP is 40 mmHg. Left Ventricular Wall Motion: Rest Echo Findings All wall segments showed normal motion. Findings: Study Quality * Technically adequate exam. ECG Findings * Normal sinus rhythm. Left Ventricle * LVEF 65%. * Normal LV chamber size, wall thickness and function. * Mild left ventricular diastolic dysfunction. Right Ventricle * Normal right ventricular structure and function. Left Atrium * Mildly dilated left atrium. Right Atrium * Normal right atrial size. Aortic Valve * Trileaflet aortic valve. * Mild aortic regurgitation. * No aortic stenosis. Mitral Valve * Normal mitral valve structure and function. * No mitral stenosis. * Trace mitral regurgitation. Tricuspid Valve * Normal tricuspid valve structure and function. * Trace tricuspid regurgitation. * Mild pulmonary hypertension. * Estimated RVSP is 40 mmHg. * Estimated RA pressure is 5 mmHg. Pulmonic Valve * Pulmonic valve is not well visualized. * No pulmonic regurgitation. Aorta * Normally sized aortic root. Pericardium * The pericardium appears normal. IVC * Normal IVC dimensions and inspiratory collapse. Pulmonary Artery * Normal visualized portions of the main pulmonary artery. Consult Discharge Plan - Plan Referrals: Master Lynch MD [Primary Care Provider] - <Addison Pena - Last Filed: 02/09/18 19:33> Hospitalist Progress Note - Encounter Date of Encounter: 02/09/18 - Exam Vitals: Temp Pulse Resp BP Pulse Ox 97.6 F 70 15 151/74 94 02/09/18 15:45 02/09/18 15:45 02/09/18 15:45 02/09/18 15:45 02/09/18 15:45 - Time Spent with Patient Total time spent is greater than 50% in coordination of care (as documented) at patient's floor/unit and/or counseling patient: Internal Medicine: Result - Labs CBC & Chem 7: 02/09/18 02:42 02/09/18 02:42 Labs: Short CBC 02/09/18 Range/Units 02:42 WBC 8.8 (4.3-11.1) K/mcL Hgb 13.1 (11.5-15.4) g/dL Hct 37.0 (35.3-44.9) % Plt Count 217 (140-400) K/mcL BMP 02/09/18 02:42 Sodium 136 Potassium 3.4 L Chloride 103 Carbon Dioxide 24 BUN 23 Creatinine 0.91 Glucose 111 H Calcium 9.6 - Impressions Impressions Echocardiogram 02/09/18 10:36 Impressions: LVEF 65%. Normal LV chamber size, wall thickness and function. Mild left ventricular diastolic dysfunction. Normal right ventricular structure and function. Mild aortic regurgitation. Mild pulmonary hypertension. Estimated RVSP is 40 mmHg. Left Ventricular Wall Motion: Rest Echo Findings All wall segments showed normal motion. Findings: Study Quality * Technically adequate exam. ECG Findings * Normal sinus rhythm. Left Ventricle * LVEF 65%. * Normal LV chamber size, wall thickness and function. * Mild left ventricular diastolic dysfunction. Right Ventricle * Normal right ventricular structure and function. Left Atrium * Mildly dilated left atrium. Right Atrium * Normal right atrial size. Aortic Valve * Trileaflet aortic valve. * Mild aortic regurgitation. * No aortic stenosis. Mitral Valve * Normal mitral valve structure and function. * No mitral stenosis. * Trace mitral regurgitation. Tricuspid Valve * Normal tricuspid valve structure and function. * Trace tricuspid regurgitation. * Mild pulmonary hypertension. * Estimated RVSP is 40 mmHg. * Estimated RA pressure is 5 mmHg. Pulmonic Valve * Pulmonic valve is not well visualized. * No pulmonic regurgitation. Aorta * Normally sized aortic root. Pericardium * The pericardium appears normal. IVC * Normal IVC dimensions and inspiratory collapse. Pulmonary Artery * Normal visualized portions of the main pulmonary artery. - Attending Attestation I examined this patient and my medical decision-making was reviewed with the Resident Physician on 02/09/18. I agree with the documented findings, disposition and treatment plan as described except to the extent set forth below. Ms Tenorio was admitted earlier today with near syncopal episode. Appreciate cardiology input. Neuro to eval. Agree with above assessment and plan. <Leighann Chawla - Last Filed: 02/09/18 18:15> (2) Hypertension Qualifiers: Qualified Code(s): I10 - Essential (primary) hypertension
[2018-02-10 06:56] VITALS: BP 124/67
[2018-02-10] MEDS: amLODIPine 5 MG TABLET PO SCH (09:49)
[2018-02-10] MEDS: Loratadine 10 MG TABLET PO SCH (09:50)
--- NOTE | 2018-02-10 10:06 | Neurology - Consult Note ---
Date of Encounter: 02/10/18 Time of Encounter: 10:05 Assessment and Plan (1) Orthostatic hypotension Current Visit: Yes Status: Acute This is a 78 year old woman with PMH significant for HTN, CKD, GERD who developed two similar episodes of near syncope/syncope episodes, occurring in standing position after standing up for a while. She lost consciousness momentarily and regained her consciousness quickly both instances. Also she has been experiencing intermittent not feeling well, weakness in the morning. She has HTN and been on 4 antihypertensives and i agree that this could be a case of orthostatic hypotension in light of not hydrating adequately. She has non focal neurological examination. No indications of seizure activity. No indications of cranial nerve involvement. i would recommend no further testing or imaging studies except carotid artery duplex study to rule out ICA stenosis. Other than that agree with current medical treatment plan, including regulate BP , adequate hydration, stocking legs. Thank you very much for the consultation History of Present Illness Chief complaint: generalized weakness and near syncope HPI: Ms. Tenorio is a 78 year old female with PMH significant for HTN, GERD, hyperlipidemia, CKD, who developed an episode of not feeling well, and then passed out momentarily. Patient has had a similar episode in the past. She was initially in sitting position and after standing and walking a while she suddenly felt dizzy and collapsed on the floor. No motor activity, no tongue biting and no urinary incontinence. She recognizes that both episodes occurred when the days prior to the incidents she was not dydrated well. She has been experiencing also these episodes of not feeling well, generalized weakness usually happens in the morning and after a nap she would then feel better in the afternoon. No focal neurological deficits noted. Past Med Surg Social Fam HX - Past Medical History Medical history: atrial fibrillation, GERD, hyperlipidemia, hypertension Additional medical history: high triglycerides Psychiatric history: no psych history - Social History Smoking Status: Never smoker Smokeless Tobacco Status: No Alcohol use: none Drug use: none - Family History Mother History Unknown: Yes Name: Briana Walters Age at : 97 Hx Family Genitourinary Disorders: Yes Medications and Allergies Alendronate Sodium [Fosamax] 35 mg PO QWEEK 02/08/18 [History] Atenolol [Tenormin] 50 mg PO DAILY 02/08/18 [History] Atorvastatin Calcium [Lipitor] 20 mg PO HS 02/08/18 [History] Calcium Carb, Citrate/Vit D3 [Calcium + D3 ER Tablet] 1 tab PO DAILY 02/08/18 [ History] Lisinopril [Zestril] 10 mg PO DAILY 02/08/18 [History] Loratadine [Allergy Relief] 10 mg PO DAILY 02/08/18 [History] Multivitamin [One Daily Essential] 1 tab PO DAILY 02/08/18 [History] Niacin [Plain Niacin] 250 mg PO DAILY 02/08/18 [History] [place]-3/Dha/Epa/Fish Oil [Fish Oil 1,000 mg Softgel] 1 cap PO DAILY 02/08/18 [ History] amLODIPine [Norvasc] 5 mg PO DAILY 02/08/18 [History] hydroCHLOROthiazide [Hydrochlorothiazide] 25 mg PO DAILY 02/08/18 [History] 3 Allergy/AdvReac Type Severity Reaction Status Date / Time caffeine Allergy Hives Verified 02/08/18 19:28 codeine Allergy Hives Verified 02/08/18 19:28 digoxin [From Lanoxin] Allergy Hives Verified 02/08/18 19:28 All Systems: The remainder of the systems were reviewed and are negative Physical Examination - Vital Signs Vital Signs: Initial Vital Signs Temp Pulse Resp BP Pulse Ox 98.1 F 80 20 169/71 97 02/08/18 19:02 02/08/18 19:02 02/08/18 19:02 02/08/18 19:02 02/08/18 19:02 - Constitutional General appearance: comfortable - Neurologic Sensorimotor examination: intact Detailed motor examination: full strength in all major muscle groups Motor examination - right side: 5/5: deltoids, biceps, triceps, wrist flexion, wrist extension, railroad purchasing agent, hip flexors, tibialis Anterior, quadriceps, toe extension (EHL), plantarflexion Motor examination - left side: 5/5: deltoids, biceps, triceps, wrist flexion, wrist extension, hip flexors, railroad purchasing agent, quadriceps, tibialis Anterior, toe extension (EHL), plantarflexion Reflexes: Biceps: 2+, Triceps: 2+, Brachioradialis: 2+, Patella: 2+, Achilles: 2 + Mental Status Examination: awake, alert, oriented to person, oriented to place, oriented to time, follows commands appropriately, answers questions appropriately, no agnosia, no aphasia, no aproxia Cranial nerve examination: PERRL, EOMI, visual wagoner intact, corneal reflexes brisk symmetrically, sensory to face intact, mastication intact, no facial asymmetry is present, no dysarthria, hearing is intact symmetrically, soft palate elevates bilaterally upon phonation, gag reflex intact, flexes SCM and trapezius muscles symmetrically with full power, tongue protrudes midline, no atrophy or facial fasiculations present Cerebellar examination: no dysmetria, performs finger to nose and heel to sahni symmetrically without ataxia, no gait ataxia, no truncal ataxia, no difficulty with rapid alternating movements Results - Laboratory Findings CBC and BMP: 02/09/18 02:42 02/09/18 02:42 Abnormal lab findings: Abnormal lab results Potassium 3.4 mEq/L (3.5-5.1) L 02/09/18 02:42 Glucose 111 mg/dL (70-105) H 02/09/18 02:42 Ur Specific [place] 1.007 (1.010-1.025) L 02/08/18 22:23 Urine Blood Trace (Negative) H 02/08/18 22:23 Ur Leukocyte Esterase Trace (Negative) H 02/08/18 22:23 Ur Culture Indicated? YES (NO) A 02/08/18 22:23 Consult Discharge Plan - Plan Referrals: Master Lynch MD [Primary Care Provider] -
--- NOTE | 2018-02-10 10:36 | Cardiology Progress Note ---
Date of Encounter: 02/10/18 Time of Encounter: 10:34 Assessment and Plan (1) Pre-syncope Current Visit: Yes Status: Acute 78-year-old female who reports a few episodes of near syncope in the setting of periods of decreased hydration, prolonged standing, and hot environments. Presentation is suggestive of orthostatic hypotension. We discussed the importance of risk factor modification, including aggressive hydration, especially in hot environments. She was encouraged to avoid prolonged periods of standing. Compression stockings encouraged. No significant findings on TTE. Telemetry demonstrates sinus rhythm. No further inpatient cardiology testing appears to be necessary to this time. Cardiology will sign off. Please call with any questions or concerns. Discussion w patient/family: The assessment and plan as outlined above was discussed with the patient and/or family members who expressed understanding and agreement. All questions were answered. Thank you for involving us in the care of your patient. Please call with any questions. Subjective Principal diagnosis: Near syncope Interval history: Overall, patient reports she feels better. No further episodes of lightheadedness or near syncope since hospitalization. Telemetry demonstrates sinus rhythm. TTE demonstrates normal LV function, no significant valve disease. Objective Vital Signs, Last 4 Hours Temp Pulse Resp BP Pulse Ox 02/10/18 06:55 97.7 F 61 15 124/67 93 General: Conversant, No Apparent Distress HEENT: Atraumatic, Normocephaly, Mucus Membranes Moist Neck: No JVD, Normal carotid pulses Cardiac: Reg Rate and Rhythm, Normal S1 and S2, No Murmur Lungs: Normal Breath Sounds, No Wheeze, Rales, Rhonchi Neuro: Alert and responsive, No focal deficits noted Abdomen: Soft, Non-Tender Skin: No rashes noted on visualized skin Musculoskeletal: No Chest Wall Tenderness Extremities: No Clubbing, No Cyanosis, No Edema Results 02/09/18 02:42 02/09/18 02:42 - Imaging and Cardiology Echo: report reviewed - EKG Interpretation EKG results cardiology: personally reviewed - VTE Documentation of Mechanical Device: Intermittent pneumatic compression device Consult Discharge Plan - Plan Referrals: Master Lynch MD [Primary Care Provider] -
--- NOTE | 2018-02-10 12:08 | Discharge Summary ---
<Leighann Chawla - Last Filed: 02/10/18 12:06> - NOTES TO OUTPATIENT PROVIDER Notes to Outpatient Provider: Please note that hydrochlorothiazide has been discontinued. Now taking amlodipine, lisinopril and atenolol at night. Was instructed to take daily blood pressure measurements to discuss at follow up appointment Orders not resulted at time of discharge: Pending orders 02/10/18 10:23 EV carotid duplex imaging BI Routine Date of Encounter: 02/10/18 Time of Encounter: 10:00 - Discharge Diagnosis (1) Orthostatic hypotension Priority: Primary Status: Acute (2) Hypertension Priority: Secondary Status: Acute Qualifiers: Qualified Code(s): I10 - Essential (primary) hypertension (3) Hypokalemia Priority: Secondary Status: Acute Hospital course: Ms. Tenorio is a 78 year old female who presented on 02/08/18 for one week of not feeling right and then acute onset of lightheadedness and pressure in frontal aspect of head intermittently while at local fair. Past medical history of atrial fibrillation, GERD, hypertension, hyperlipidemia, chronic kidney disease. History of 2 episodes similar 1 month ago where she felt very lightheaded which resulting in her passing out and falling to the ground, after prolonged standing. The second of these falls caused her to hit her head. Admitted for presyncopal episode and generalized weakness. Cardiology and neurology consulted. EKG was done which showed no ischemic ST changes. Given fluids in ED for possible dehydration. Troponin negative. Chest XR showed no acute cardiopulmonary abnormality. CT head showed no intracranial hemorrhage. ECHO showed LVEF 65%, mild left ventricular diastolic dysfunction, mild aortic regurgitation, mild pulmonary hypertension. TSH within normal limits. Cardiology consulted, after workup recommended adequate hydration and compression stockings. Neurology consulted and recommended no further study besides carotid doppler U/S. Orthostatic vitals were taken and were normal, however this was after admission and fluid administration. Presyncopal episode most likely secondary to orthostatic hypotension, polypharmacy and dehydration. Discontinued hydrochlorothiazide as it could be contributing to dehydration. Instructed to take remaining blood pressure medications at night before bed. Also maintain adequate hydration. Ms. Tenorio was much improved upon discharge and has agreed to take blood pressure measurements at home in order to bring a record after medication change to her follow up appointment. Discharge discussed with: patient - Time Spent with Patient Total time spent providing and/or coordinating discharge services: Greater than 30 minutes (36) - Discharge Medications Home Medications: Alendronate Sodium [Fosamax] 35 mg PO QWEEK 02/08/18 [History] Atenolol [Tenormin] 50 mg PO DAILY 02/08/18 [History] Atorvastatin Calcium [Lipitor] 20 mg PO HS 02/08/18 [History] Calcium Carb, Citrate/Vit D3 [Calcium + D3 ER Tablet] 1 tab PO DAILY 02/08/18 [ History] Lisinopril [Zestril] 10 mg PO DAILY 02/08/18 [History] Loratadine [Allergy Relief] 10 mg PO DAILY 02/08/18 [History] Multivitamin [One Daily Essential] 1 tab PO DAILY 02/08/18 [History] Niacin [Plain Niacin] 250 mg PO DAILY 02/08/18 [History] Barnet-3/Dha/Epa/Fish Oil [Fish Oil 1,000 mg Softgel] 1 cap PO DAILY 02/08/18 [ History] amLODIPine [Norvasc] 5 mg PO DAILY 02/08/18 [History] Allergies/Adverse Reactions: 3 Allergy/AdvReac Type Severity Reaction Status Date / Time caffeine Allergy Hives Verified 02/08/18 19:28 codeine Allergy Hives Verified 02/08/18 19:28 digoxin [From Lanoxin] Allergy Hives Verified 02/08/18 19:28 Date of admission: 02/08/18 22:55 Primary care physician: Master Lynch MD Consults: 02/09/18 08:44 Consult to Cardiology [CONS] Routine Comment: Consulting Provider: [facility] Reason for Consult: Near syncope Time Notified: 08:40 Call Completed: Yes 02/09/18 14:10 Consult to Neurology [CONS] Routine Consulting Provider: [facility] Reason for Consult: Presyncope Time Notified: 14:12 Call Completed: Yes Discharging clinician: Leighann Chawla Anticipated date of discharge: 02/10/18 - Constitutional Vitals: Temp Pulse Resp BP Pulse Ox 97.7 F 61 15 124/67 93 02/10/18 06:55 02/10/18 06:55 02/10/18 06:55 02/10/18 06:55 02/10/18 06:55 General appearance: Present: cooperative, A&O X 3, pleasant, no acute distress, answers questions appropriately - Head Head exam: Present: atraumatic, normocephalic - Eye Eye exam: Present: PERRL, conjuntiva pink, sclera anicteric Pupils: Present: PERRL - ENT ENT exam: Present: mucous membranes moist - Neck Neck exam general surgery: Present: normal inspection, supple, trachea midline. Absent: full ROM, lymphadenopathy Additional comments: Decreased ROM, unable to fully turn head to left or fully bring chin to chest - Respiratory Respiratory exam: Present: CTAB. Absent: accessory muscle use, rales, rhonchi, wheezes - Cardiovascular Cardiovascular exam: Present: RRR, +S1, +S2. Absent: diastolic murmur, gallop, irregular rhythm, JVD, rubs, systolic murmur - GI/Abdominal GI/Abdominal exam: Present: normal bowel sounds, soft, no peritoneal signs. Absent: distended, tenderness - Extremities Exam Extremities exam: Present: warm, radial pulses palpable and symmetrical. Absent : calf tenderness, cyanotic, pedal edema - Neurological Exam Neurological exam: Present: CN II-XII intact, oriented X3, reflexes normal, no focal deficits. 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) Follow Up With: Master Lynch MD [Primary Care Provider] - (please call tomorrow and make a follow up appointment for 5-7 days) - Diet and Activity Activity: resume usual activities as tolerated Diet: advance to your usual diet - VTE Documentation of Mechanical Device: Intermittent pneumatic compression device <Addison Pena - Last Filed: 02/10/18 18:38> Date of Encounter: 02/10/18 - Discharge Diagnosis (1) Orthostatic hypotension Status: Suspected (2) Hypertension Status: Chronic Qualifiers: Hypertension type: essential hypertension Qualified Code(s): I10 - Essential (primary) hypertension (3) Hypokalemia Status: Resolved Hospital course: Ms. Tneorio is a 78 year old female - Time Spent with Patient Total time spent providing and/or coordinating discharge services: 38min Date of admission: 02/08/18 22:55 Primary care physician: Master Lynch MD Consults: 02/09/18 08:44 Consult to Cardiology [CONS] Routine Comment: Consulting Provider: [facility] Reason for Consult: Near syncope Time Notified: 08:40 Call Completed: Yes 02/09/18 14:10 Consult to Neurology [CONS] Routine Consulting Provider: [facility] Reason for Consult: Presyncope Time Notified: 14:12 Call Completed: Yes - Constitutional Vitals: Temp Pulse Resp BP Pulse Ox 97.7 F 61 15 124/67 93 02/10/18 06:55 02/10/18 06:55 02/10/18 06:55 02/10/18 06:55 02/10/18 06:55 - Attending Attestation I examined this patient and my medical decision-making was reviewed with the Resident Physician on 02/10/18. I agree with the documented findings, disposition and treatment plan as described except to the extent set forth below. Ms Tenorio has been in observation for near syncope. She has been evaluated by neuro and cardiology. HCTZ has been stopped. At this time she is afebrile and ready to go home. Exam alert. Comfortable Mucus membranes dry Heart reg No wheeze Abd soft No edema Plan D/C home today.
--- NOTE | 2018-02-11 12:36 | Electrocardiograph Report ---
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
== END 2018-02-10 16:00 | disposition home or self-care (01) ==
LOC: 2NENU 19:00 → EMEROO 19:00 → SUATTDRO 22:55 → 2NENU 23:42
PROVIDERS: ADMIT Family Medicine; ATTEND Internal Medicine